=== PATIENT | male | born 1975 | race Caucasian/White ===

== ENCOUNTER → 2019-08-16 13:05 | Outpatient (BNVA) | payer BC, SELFPAY | PROVIDERS: Family Provider Family Medicine; PCP Nurse Practitioner Family; Visit Provider Specialist | DX: G25.3 Myoclonus (principal); G43.019 Migraine without aura, intractable, without status migrainosus | CPT/HCPCS: 99213 ==

== ENCOUNTER → 2020-02-19 14:16 | Outpatient (BNVA) | payer BC, SELFPAY | PROVIDERS: Family Provider Family Medicine; PCP Internal Medicine; Referring Provider Internal Medicine; Visit Provider Specialist | DX: G25.3 Myoclonus (principal) | CPT/HCPCS: 99212 ==